=== PATIENT | male | born 1985 | race Caucasian/White ===

== ENCOUNTER 2016-11-13 23:05 | Emergency (ER) | payer BC, OTHER ==
[~2016-11-13] VITALS: Ht 177.8 cm; Wt 51.0 kg
[2016-11-13 23:13] VITALS: Ht 177.8 cm; Wt 51.0 kg
[2016-11-13] MEDS ORDERED: SOD CHLORIDE 0.9% 1,000 ML IV STA (23:48)
[2016-11-13] MEDS ORDERED: morphine 4 MG/ML VIAL IV STA (23:48)
[2016-11-13] MEDS ORDERED: ONDANSETRON 4 MG INJ IV STA (23:48)
--- NOTE | 2016-11-13 23:58 | ERD ---
ER Documentation Chief Complaint Date/Time DATE: 11/13/16 TIME: 23:54 Chief Complaint not feeling well; sent by PMD; hx of HIV HPI 30-year-old male sent to emergency department for complaints of headache abdominal pain, generalized bodyaches weakness,"not feeling well", patient was sent here by infectious disease doctor for possible CT scan of the brain for further evaluation, patient is complaining of headache and abdominal pain throbbing pain for section, not better or worse with anything. Patient denies any fever or chills. Patient has history of HIV, last CD4 count was 558. Patient 's infectious disease doctor was worsened patient continues to have headache and abdominal pain and what patient evaluated here in emergency department for further evaluation. Patient in currently on treatment for HIV. ROS All systems reviewed and are negative except as per history of present illness. Medications Home Meds Reported Medications [none] Unknown Strength No Conflict Check 11/13/16 Allergies Allergies: Uncoded Allergies: BEES (Allergy, Unknown, 11/13/16) SHELLFISH (Allergy, Unknown, 11/13/16) PMhx/Soc History of Surgery: No Anesthesia Reaction: No Hx Neurological Disorder: No Hx Respiratory Disorders: No Hx Cardiac Disorders: No Hx Psychiatric Problems: No Hx Miscellaneous Medical Probl: Yes (HIV positive) Hx Alcohol Use: No Hx Substance Use: No Hx Tobacco Use: No Smoking Status: Never smoker FmHx Family History: No coronary disease, No diabetes, No other Physical Exam Vitals Vital Signs Date Time Temp Pulse Resp B/P Pulse Ox O2 Delivery O2 Flow Rate FiO2 11/13/16 23:13 97.2 66 20 123/71 98 Physical Exam GENERAL: The patient is well developed and appropriate for usual state of health, in no apparent distress. CHEST: Clear to auscultation bilaterally. There are no rales, wheezes or rhonchi. HEART: Regular rate and rhythm. No murmurs, clicks, rubs or gallops. No S3 or S4. ABDOMEN: Soft, nontender and nondistended. Good bowel sounds. No rebound or guarding. No gross peritonitis. No gross organomegaly or masses. No Johnson sign or McBurney point tenderness. BACK: No midline or flank tenderness. EXTREMITIES: Equal pulses bilaterally. There is no peripheral clubbing, cyanosis or edema. No focal swelling or erythema. Full range of motion. Grossly neurovascularly intact. NEURO: Alert and oriented. Cranial nerves 2-12 intact. Motor strength in all 4 extremities with 5/5 strength. Sensation grossly intact. Normal speech and gait. SKIN: There is no apparent rash or petechia. The skin is warm and dry. HEMATOLOGIC AND LYMPHATIC: There is no evidence of excessive bruising or lymphedema. No gross cervical, axillary, or inguinal lymphadenopathy. Result Diagram: 11/13/16 2350 11/13/16 2350 Results 24 hrs Laboratory Tests Test 11/13/16 23:50 11/14/16 00:00 White Blood Count 6.210^3/ul Red Blood Count 4.7910^6/ul Hemoglobin 15.0g/dl Hematocrit 43.6% Mean Corpuscular Volume 91.0fl Mean Corpuscular Hemoglobin 31.3pg Mean Corpuscular Hemoglobin Concent 34.4g/dl Red Cell Distribution Width 12.0% Platelet Count 41074^3/UL Mean Platelet Volume 11.4fl Neutrophils % 57.4% Lymphocytes % 33.8% Monocytes % 7.3% Eosinophils % 1.1% Basophils % 0.2% Nucleated Red Blood Cells % 0.0/100WBC Neutrophils # 3.610^3/ul Lymphocytes # 2.110^3/ul Monocytes # 0.510^3/ul Eosinophils # 0.110^3/ul Basophils # 0.010^3/ul Nucleated Red Blood Cells # 0.010^3/ul Platelet Estimate PLT APPEAR DECREASED Large Platelets FEW Sodium Level 137mmol/L Potassium Level 4.1mmol/L Chloride Level 103mmol/L Carbon Dioxide Level 26mmol/L Anion Gap 12 Blood Urea Nitrogen 19mg/dl Creatinine 0.99mg/dl Glucose Level 93mg/dl Lactic Acid Level 0.7mmol/L Calcium Level 9.6mg/dl Total Bilirubin 0.2mg/dl Direct Bilirubin 0.00mg/dl Indirect Bilirubin 0.2mg/dl Aspartate Amino Transf (AST/SGOT) 27IU/L Alanine Aminotransferase (ALT/SGPT) 38IU/L Alkaline Phosphatase 63IU/L Total Protein 7.5g/dl Albumin 4.9g/dl Globulin 2.60g/dl Albumin/Globulin Ratio 1.88 Lipase 77U/L Urine Color YELLOW Urine Clarity CLOUDY Urine pH 7.0 Urine Specific [place] 1.020 Urine Ketones NEGATIVEmg/dL Urine Nitrite NEGATIVEmg/dL Urine Bilirubin NEGATIVEmg/dL Urine Urobilinogen NEGATIVEmg/dL Urine Leukocyte Esterase NEGATIVELeu/ul Urine Microscopic RBC 1/HPF Urine Microscopic WBC 5/HPF Urine Amorphous Crystals FEW/HPF Urine Hemoglobin NEGATIVEmg/dL Urine Glucose NEGATIVEmg/dL Urine Total Protein NEGATIVEmg/dl Current Medications Medications (Trade) Dose Ordered Sig/Vincent Route PRN Reason Start Time Stop Time Status Last Admin Dose Admin Sodium Chloride (NS) 1,000 ml @ 1,000 mls/hr Q1H STAT IV 11/13/16 23:48 11/14/16 00:47 DC 11/14/16 00:16 Morphine Sulfate (morphine) 4 mg ONCE STAT IV 11/13/16 23:48 11/13/16 23:49 DC 11/14/16 00:16 Ondansetron HCl (Zofran Inj) 4 mg ONCE STAT IV 11/13/16 23:48 11/13/16 23:49 DC 11/14/16 00:16 Patient was given medication for pain here in emergency department, after treatment, patient verbalized feeling much better. Patient's pain is improved.Patient was given Zofran here in the emergency department. After treatment, patient was able to tolerate po fluids here in the emergency department without any vomiting. There is no signs and symptoms of dehydration. Normal saline IV bolus was given here in emergency department for rehydration, patient tolerated IV fluids. PROCEDURE: CT Abdomen and Pelvis without contrast. CLINICAL INDICATION: Pain. TECHNIQUE: CT scan of the abdomen and pelvis was performed on a multidetector slice CT scanner. No intravenous contrast material was utilized. Sagittal and coronal reformatted images were obtained from the axial source images. Images were reviewed on a high-resolution PACS workstation. Exam CTDlvol = 7.95 mGy and DLP = 467 Gy-cm. One of the following 3 dose reduction techniques were used : Automated exposure control; adjustment of the mA and/or kV according to patient size; or use of iterative reconstruction technique. COMPARISON: None. FINDINGS: There is no obstruction or ileus. There is abundant stool throughout the colon. The appendix is well visualized and normal in size. There is no evidence for diverticulitis. There is no free fluid. The liver is overall normal in size. No intrahepatic lesions are identified. The gallbladder is normal in appearance. There is no definite biliary ductal dilation. Pancreas is normal in appearance. The spleen is unremarkable.. There are no adrenal masses. The aorta is normal caliber. Kidneys are normal in appearance without hydronephrosis, mass or calculus. There is no perinephric collection. Ureters are of normal caliber and without evidence for an obstructing calculus. The urinary bladder is partially contracted with nonspecific wall thickening. .. Limited evaluation of the lung bases is unremarkable. The bones are unremarkable. IMPRESSION: 1. No acute bowel obstruction or ileus. Abundant stool. 2. No evidence for appendicitis or diverticulitis. 3. No obstructive uropathy. Partially contracted urinary bladder with nonspecific wall thickening. 4. Otherwise negative examination. RPTAT: HMVK .James Slainas MD, MD Date Time Electronically viewed and signed by .James Salinas MD, MD on 11/14/2016 01:12 .K/ CC: KI RAIN NP PROCEDURE: CT Brain without contrast. CLINICAL INDICATION: Headache. TECHNIQUE: Serial axial computed tomographic images of the brain was performed on a CT scanner from the skull base through the vertex without contrast. Sagittal and coronal reconstruction images were produced. Exam CTDlvol = 45 mGy and DLP = 720 mGy-cm. One of the following 3 dose reduction techniques were used: Automated exposure control; adjustment of the mA and/or kV according to patient size; or use of iterative reconstruction technique. COMPARISON: None available FINDINGS: The ventricles and sulci are normal in size and configuration. There is no midline shift. There are no focal parenchymal abnormalities. There is no acute stroke. No acute intracranial hemorrhage or abnormal extra-axial fluid collection. No fracture identified. Visualized paranasal sinuses are clear. IMPRESSION: 1. No acute intracranial abnormality. RPTAT: HMVK .James Salinas MD, MD Date Time Electronically viewed and signed by .James Salinas MD, MD on 11/14/2016 01:05 .K/ CC: KI RAIN POLYMER CHEMIST Procedures/MDM Medical Decision Making: Patient abdominal pain nonspecific at this time, possible viral in origin. No leukocytosis. No bandemia. Lactic acid is normal, no symptoms of any sepsis. Patient has history of HIV, no symptoms of any superinfection. There is low suspicion for abdominal emergencies at this time. Patients abdominal exam is normal at this time. Patients radiology exam does not show any abdominal emergencies at this time. There is low suspicion for appendicitis, cholecystitis, abdominal aortic aneurysms or peritonitis at this time. There is low suspicion for sepsis. Patient appears well and is hemodynamically stable. Patient also has a headache, most likely from the viral illness also. Can be also from migraine. There is low suspicion for neurological emergencies at this time since patients neurologic exam is normal. Patient did not have any altered level consciousness, vomiting, changes in balance or memory and did not have any head injury. Patients CT scan of the head does not show any neurological emergencies at this time. Disposition: Home. Condition: Stable Prescription for tramadol, Zofran Instructions: Patient is advised to take medications as prescribed. Patient is advised to rest, increase fluid intake and do brat diet for next 1-2 days and progress as tolerated. Patient is advised that if symptoms are worse, severe abdominal pain, uncontrolled vomiting, high fever, severe flank pain, worst signs and symptoms, to return to the emergency department immediately. Otherwise, patient can follow up with primary care doctor in 5-7 days. Departure Diagnosis: Primary Impression: Headache Headache type: unspecified Headache chronicity pattern: acute headache Intractability: not intractable Qualified Code: R51 - Acute nonintractable headache, unspecified headache type Additional Impression: Abdominal pain Abdominal location: lower abdomen, unspecified Qualified Code: R10.30 - Lower abdominal pain Condition: Stable Patient Instructions: Abdominal Pain, Headache, Unspecified Additional Instructions: Patient is advised to take medications as prescribed. Patient is advised to rest , increase fluid intake and do brat diet for next 1-2 days and progress as tolerated. Patient is advised that if symptoms are worse, severe abdominal pain , uncontrolled vomiting, high fever, severe flank pain, worst signs and symptoms , to return to the emergency department immediately. Otherwise, patient can follow up with primary care doctor in 5-7 days. KI RAIN. MIRNA Nov 13, 2016 23:58
[2016-11-14 00:18] LABS: ADD SCAN DIFF NO
[2016-11-14 00:23] LABS: BASOPHILS % 0.2 % (0.0-2.0); EOSINOPHILS # 0.1 10^3/ul (0.0-0.5); EOSINOPHILS % 1.1 % (0.0-7.0); HEMATOCRIT 43.6 % (42.0-52.0); LYMPHOCYTES # 2.1 10^3/ul (0.8-2.9); LYMPHOCYTES % 33.8 % (15.0-51.0); MEAN CORPUSCULAR HEMOGLOBIN 31.3 pg (29.0-33.0); MEAN CORPUSCULAR HGB CONC 34.4 g/dl (32.0-37.0); MEAN PLATELET VOLUME 11.4 fl (7.4-10.4); MONOCYTE # 0.5 10^3/ul (0.3-0.9); MONOCYTES % 7.3 % (0.0-11.0); NEUTROPHIL # 3.6 10^3/ul (1.6-7.5); NEUTROPHILS % 57.4 % (39.0-77.0); PLATELET COUNT 102 10^3/UL (140-415); RED BLOOD COUNT 4.79 10^6/ul (4.70-6.10); WHITE BLOOD COUNT 6.2 10^3/ul (4.8-10.8)
[2016-11-14 00:41] LABS: ADD UMIC YES; UR AMORPHOUS CRYSTAL FEW /HPF (NONE SEEN); UR ASCORBIC ACID 40 mg/dL (NEGATIVE); UR BILIRUBIN (Dip) NEGATIVE (NEGATIVE); UR BLOOD (Dip) NEGATIVE (NEGATIVE); UR CLARITY CLOUDY (CLEAR); UR COLOR YELLOW (YELLOW); UR GLUCOSE (Dip) NEGATIVE (NEGATIVE); UR KETONES (Dip) NEGATIVE (NEGATIVE); UR LEUKOCYTE ESTERASE (Dip) NEGATIVE Leu/ul (NEGATIVE); UR NITRITE (Dip) NEGATIVE (NEGATIVE); UR RBC 1 /HPF (0-5); UR TOTAL PROTEIN (Dip) NEGATIVE (NEGATIVE); UR UROBILINOGEN (Dip) NEGATIVE (NEGATIVE)
[2016-11-14 00:46] LABS: ALBUMIN 4.9 g/dl (3.3-4.9); ALBUMIN/GLOBULIN RATIO 1.88; BILIRUBIN,INDIRECT 0.2 mg/dl (0-1.1); BILIRUBIN,TOTAL 0.2 mg/dl (0.2-1.3); CALCIUM 9.6 mg/dl (8.4-10.2); CREATININE 0.99 mg/dl (0.61-1.24); POTASSIUM 4.1 mmol/L (3.5-5.1); TOTAL PROTEIN 7.5 g/dl (6.1-8.1)
--- NOTE | 2016-11-14 01:05 | RADRPT ---
PROCEDURE: CT Brain without contrast. CLINICAL INDICATION: Headache. TECHNIQUE: Serial axial computed tomographic images of the brain was performed on a CT scanner fro m the skull base through the vertex without contrast. Sagittal and coronal reconstruction images wer e produced. Exam CTDlvol = 45 mGy and DLP = 720 mGy-cm. One of the following 3 dose reduction tech niques were used: Automated exposure control; adjustment of the mA and/or kV according to patient si ze; or use of iterative reconstruction technique. COMPARISON: None available FINDINGS: The ventricles and sulci are normal in size and configuration. There is no midline shift. There ar e no focal parenchymal abnormalities. There is no acute stroke. No acute intracranial hemorrhage o r abnormal extra-axial fluid collection. No fracture identified. Visualized paranasal sinuses are clear. IMPRESSION: 1. No acute intracranial abnormality. RPTAT: HMVK .James Salinas MD, Date Time Electronically viewed and signed by .James Salinas MD, on 11/14/2016 01:05 .K/
--- NOTE | 2016-11-14 01:12 | RADRPT ---
PROCEDURE: CT Abdomen and Pelvis without contrast. CLINICAL INDICATION: Pain. TECHNIQUE: CT scan of the abdomen and pelvis was performed on a multidetector slice CT scanner. No intravenous contrast material was utilized. Sagittal and coronal reformatted images were obtained fr om the axial source images. Images were reviewed on a high-resolution PACS workstation. Exam CTDlvol = 7.95 mGy and DLP = 467 Gy-cm. One of the following 3 dose reduction techniques were used: Automat ed exposure control; adjustment of the mA and/or kV according to patient size; or use of iterative r econstruction technique. COMPARISON: None. FINDINGS: There is no obstruction or ileus. There is abundant stool throughout the colon. The appendix is well visualized and normal in size. There is no evidence for diverticulitis. There is no free fluid. The liver is overall normal in size. No intrahepatic lesions are identified. The gallbladder is norm al in appearance. There is no definite biliary ductal dilation. Pancreas is normal in appearance. Th e spleen is unremarkable.. There are no adrenal masses. The aorta is normal caliber. Kidneys are normal in appearance without hydronephrosis, mass or calculus. There is no perinephric c ollection. Ureters are of normal caliber and without evidence for an obstructing calculus. The urin bertha bladder is partially contracted with nonspecific wall thickening. .. Limited evaluation of the lung bases is unremarkable. The bones are unremarkable. IMPRESSION: 1. No acute bowel obstruction or ileus. Abundant stool. 2. No evidence for appendicitis or diverticulitis. 3. No obstructive uropathy. Partially contracted urinary bladder with nonspecific wall thickening. 4. Otherwise negative examination. RPTAT: HMVK .James Salinas MD, MD Date Time Electronically viewed and signed by .James Salinas MD, MD on 11/14/2016 01:12 .K/
[2016-11-14 01:45] LABS: PLATELET ESTIMATE PLT APPEAR DECREASED
[2016-11-14] MEDS ORDERED: TRAM50TA2 PO (02:47)
[2016-11-14] MEDS ORDERED: ONDA4TAB14 PO (02:47)
[2016-11-14 02:58] VITALS: BP 120/70; RESP 20; TEMP 97.2
[2016-11-15 12:44] LABS: LYMPHOCYTE - CD4/CD8 RATIO 0.79 (0.86-5.00)
== END 2016-11-14 02:59 | disposition home or self-care (01) ==
LOC: FTE 23:05
DX: R51 Headache (principal); R10.30 Lower abdominal pain, unspecified
CPT/HCPCS: 36415; 70450; 74176; 80053; 81001; 83605; 83690; 85025; 86360; 96374; 96375; J2270; J2405; J7030; Z7502

== ENCOUNTER 2016-12-23 23:51 | Emergency (ER) | payer BC ==
[~2016-12-23] VITALS: Ht 182.9 cm; Wt 74.0 kg
[~2016-12-23 23:51] MED LIST: ONDA4TAB14 PO; TRAM50TA2 PO
[2016-12-23 23:58] VITALS: Ht 182.9 cm; Wt 74.0 kg
[2016-12-24] MEDS ORDERED: FIORICET PO (03:00)
[2016-12-24] MEDS ORDERED: ONDA4TAB14 PO (03:00)
--- NOTE | 2016-12-24 03:18 | ERD ---
ER Documentation Chief Complaint Date/Time DATE: 12/24/16 TIME: 03:15 Chief Complaint headache w/ vomiting since 6 hours ago HPI 31-year-old male presents here in emergency department for complaints of headache and vomiting is then 6 hours ago. Patient has history of chronic headache, patient has been seen here in the emergency department before for the same problem, had a CT scan of the brain done already before. Patient denies any head injury. Patient's complain of headache throbbing pains 6/10 scale, is accompanied with vomiting at times. Patient denies any blurry vision. Patient denies any fever or chills. ROS All systems reviewed and are negative except as per history of present illness. Medications Home Meds Active Scripts Ondansetron (Ondansetron Odt) 4 Mg Tab.rapdis, 4 MG PO Q8 Y for NAUSEA AND/OR VOMITING, #30 TAB Prov:KI RAIN NP 12/24/16 Acetamin/Butalbital/Caffeine* (Fioricet*) [id number] Tab, 1 TAB PO Q6H Y for PAIN, #30 TAB Prov:KI RAIN NP 12/24/16 Ondansetron (Ondansetron Odt) 4 Mg Tab.rapdis, 4 MG PO Q8 Y for NAUSEA AND/OR VOMITING, #30 TAB Prov:KI RAIN NP 11/14/16 Tramadol HCl (Tramadol HCl) 50 Mg Tablet, 50 MG PO Q6 for SEVERE PAIN LEVEL 7-10 , #20 TAB Prov:KI RAIN NP 11/14/16 Reported Medications [none] Unknown Strength No Conflict Check 11/13/16 Allergies Allergies: Uncoded Allergies: BEES (Allergy, Unknown, 11/13/16) SHELLFISH (Allergy, Unknown, 11/13/16) PMhx/Soc History of Surgery: No Anesthesia Reaction: No Hx Neurological Disorder: No Hx Respiratory Disorders: No Hx Cardiac Disorders: No Hx Psychiatric Problems: No Hx Miscellaneous Medical Probl: Yes (HIV positive) Hx Alcohol Use: No Hx Substance Use: No Hx Tobacco Use: No Smoking Status: Never smoker FmHx Family History: No coronary disease, No diabetes, No other Physical Exam Vitals Vital Signs Date Time Temp Pulse Resp B/P Pulse Ox O2 Delivery O2 Flow Rate FiO2 12/23/16 23:58 98.8 73 20 121/78 98 Physical Exam GENERAL: The patient is well developed and appropriate for usual state of health, in no apparent distress. CHEST: Clear to auscultation bilaterally. There are no rales, wheezes or rhonchi. HEART: Regular rate and rhythm. No murmurs, clicks, rubs or gallops. No S3 or S4. ABDOMEN: Soft, nontender and nondistended. Good bowel sounds. No rebound or guarding. No gross peritonitis. No gross organomegaly or masses. No Johnson sign or McBurney point tenderness. BACK: No midline or flank tenderness. EXTREMITIES: Equal pulses bilaterally. There is no peripheral clubbing, cyanosis or edema. No focal swelling or erythema. Full range of motion. Grossly neurovascularly intact. NEURO: Alert and oriented. Cranial nerves 2-12 intact. Motor strength in all 4 extremities with 5/5 strength. Sensation grossly intact. Normal speech and gait. Negative Romberg sign. Negative pronator drift. SKIN: There is no apparent rash or petechia. The skin is warm and dry. HEMATOLOGIC AND LYMPHATIC: There is no evidence of excessive bruising or lymphedema. No gross cervical, axillary, or inguinal lymphadenopathy. Results 24 hrs PROCEDURE: CT Brain without contrast. CLINICAL INDICATION: Headache. TECHNIQUE: Serial axial computed tomographic images of the brain was performed on a CT scanner from the skull base through the vertex without contrast. Sagittal and coronal reconstruction images were produced. Exam CTDlvol = 45 mGy and DLP = 720 mGy-cm. One of the following 3 dose reduction techniques were used: Automated exposure control; adjustment of the mA and/or kV according to patient size; or use of iterative reconstruction technique. COMPARISON: None available FINDINGS: The ventricles and sulci are normal in size and configuration. There is no midline shift. There are no focal parenchymal abnormalities. There is no acute stroke. No acute intracranial hemorrhage or abnormal extra-axial fluid collection. No fracture identified. Visualized paranasal sinuses are clear. IMPRESSION: 1. No acute intracranial abnormality. RPTAT: HMVK .James Salinas MD, MD Date Time Electronically viewed and signed by .James Salinas MD, on 11/14/2016 01:05 .K/ CC: KI RANI NP Procedures/MDM Medical Decision Making: Patient symptoms are consistent with migraine headache , possible tension headache. There is low suspicion for neurological emergencies at this time since patients neurologic exam is normal. Patient did not have any altered level consciousness, vomiting, changes in balance or memory and did not have any head injury. Patients CT scan of the head does not show any neurological emergencies at this time. Rx: Fioricet Zofran Dispostion: Home. Stable Departure Diagnosis: Primary Impression: Headache Headache type: unspecified Headache chronicity pattern: acute headache Intractability: not intractable Qualified Code: R51 - Acute nonintractable headache, unspecified headache type Condition: Stable Patient Instructions: Self-Care for Headaches KI RAIN NP Dec 24, 2016 03:18
== END 2016-12-24 03:13 | disposition home or self-care (01) ==
LOC: FTE 23:51
DX: R51 Headache (principal); R11.10 Vomiting, unspecified
CPT/HCPCS: 99284